=== PATIENT | male | born 2000 | race Caucasian/White ===

== ENCOUNTER 2018-04-17 10:52 | Emergency (ER) | payer MEDICAID ==
[~2018-04-17] VITALS: Ht 177.8 cm; Wt 59.4 kg
[2018-04-17] MEDS ORDERED: IBUPROFEN 600600 M1 PO (11:39)
[2018-04-17 12:10] VITALS: BP 128/69
== END 2018-04-17 12:11 | disposition home or self-care (01) ==
LOC: M.ERS 10:52
DX: M25.511 Pain in right shoulder (principal)